=== PATIENT | male | born 1960 | race Caucasian/White ===

== ENCOUNTER 2019-04-10 09:23 | Emergency (ER) | payer MEDICARE ==
[~2019-04-10] VITALS: Ht 175.3 cm; Wt 87.3 kg
[2019-04-10 10:14] LABS: BASOPHILS # (AUTO) 0.1 X10'3 (0-0.2); EOSINOPHILS # (AUTO) 0.2 X10'3 (0-0.9); EOSINOPHILS % (AUTO) 1.8 % (0-6); HEMATOCRIT 46.3 % (42.0-52.0); HEMOGLOBIN 15.6 g/dl (14.0-17.9); LYMPHOCYTES # (AUTO) 2.4 X10'3 (1.1-4.8); LYMPHOCYTES % (AUTO) 22.1 % (21-51); MEAN CORPUSCULAR HEMOGLOBIN 29.5 PG (27.0-31.0); MEAN CORPUSCULAR HGB CONC 33.7 g/dL (33.0-36.5); MEAN CORPUSCULAR VOLUME 87.4 FL (78-98); MEAN PLATELET VOLUME 8.2 FL (7.4-10.4); MONOCYTES # (AUTO) 0.4 X10'3 (0-0.9); MONOCYTES % (AUTO) 3.6 % (2-12); NEUTROPHILS # (AUTO) 7.8 X10'3 (1.8-7.7); NEUTROPHILS % (AUTO) 71.5 % (42-75); PLATELET COUNT 344 X10'3 (140-440); RED CELL DISTRIBUTION WIDTH 14.2 % (11.5-14.5)
[2019-04-10 10:25] LABS: ALANINE AMINOTRANSFERASE 36 U/L (12-78); ALBUMIN/GLOBULIN RATIO 1.1 (1.1-1.5); ALKALINE PHOSPHATASE 98 IU/L (46-116); ANION GAP 6 (8-16); ASPARTATE AMINO TRANSFERASE 16 U/L (10-37); BILIRUBIN,TOTAL 0.4 MG/DL (0.1-1.0); BLOOD UREA NITROGEN 19 MG/DL (7-18); CHLORIDE 105 MMOL/L (99-107); CREATININE 1.12 MG/DL (0.60-1.10); GLUCOSE 132 MG/DL (70-104); POTASSIUM 3.8 MMOL/L (3.5-5.1); SODIUM 141 MMOL/L (135-145); TOTAL CARBON DIOXIDE 30.3 MMOL/L (24-32); TOTAL PROTEIN 7.6 G/DL (6.4-8.2); eGFR 68 ML/MIN
[2019-04-10] MEDS ORDERED: aspirin 81mg tab.chew PO ONE (10:45)
[2019-04-10] MEDS ORDERED: nitroGLYCERIN 0.4mg SUBLingual tab SL PRN (10:45)
--- NOTE | 2019-04-10 11:19 | NUR ---
PATIENT STATES HE FEELS MUCH BETTER , NO CHEST PAIN AND BP HAS IMPROVED
[2019-04-10 11:54] VITALS: BP 152/97
== END 2019-04-10 13:21 | disposition left against medical advice (07) ==
LOC: ER 09:23
DX: I10 Essential (primary) hypertension (principal); E78.00 Pure hypercholesterolemia, unspecified; F17.200 Nicotine dependence, unspecified, uncomplicated
CPT/HCPCS: 36415; 71045; 80053; 84484; 85025; 93005; 99284

== ENCOUNTER 2019-05-09 16:54 | Inpatient (IN) | payer MEDICARE ==
[~2019-05-09] VITALS: Ht 175.3 cm; Wt 87.0 kg
[2019-05-09 17:21] LABS: BASOPHILS % (AUTO) 0.2 % (0-1); EOSINOPHILS # (AUTO) 0.2 X10'3 (0-0.9); EOSINOPHILS % (AUTO) 1.3 % (0-6); HEMATOCRIT 44.4 % (42.0-52.0); HEMOGLOBIN 14.8 g/dl (14.0-17.9); LYMPHOCYTES # (AUTO) 4.6 X10'3 (1.1-4.8); MEAN CORPUSCULAR HEMOGLOBIN 29.1 PG (27.0-31.0); MEAN CORPUSCULAR HGB CONC 33.3 g/dL (33.0-36.5); MEAN CORPUSCULAR VOLUME 87.5 FL (78-98); MEAN PLATELET VOLUME 7.7 FL (7.4-10.4); MONOCYTES # (AUTO) 0.8 X10'3 (0-0.9); MONOCYTES % (AUTO) 4.8 % (2-12); NEUTROPHILS # (AUTO) 11.9 X10'3 (1.8-7.7); NEUTROPHILS % (AUTO) 67.7 % (42-75); PLATELET COUNT 400 X10'3 (140-440); RED BLOOD COUNT 5.08 X10'6 (4.70-6.10); RED CELL DISTRIBUTION WIDTH 14.8 % (11.5-14.5); WHITE BLOOD COUNT 17.6 X10'3 (4.5-11.0)
[2019-05-09 17:41] LABS: ALANINE AMINOTRANSFERASE 30 U/L (12-78); ALBUMIN 4.1 G/DL (3.4-5.0); ALBUMIN/GLOBULIN RATIO 1.1 (1.1-1.5); ALKALINE PHOSPHATASE 77 IU/L (46-116); ANION GAP 12 (8-16); ASPARTATE AMINO TRANSFERASE 17 U/L (10-37); BILIRUBIN,TOTAL 0.2 MG/DL (0.1-1.0); BLOOD UREA NITROGEN 13 MG/DL (7-18); BUN/CREATININE RATIO 10.6 (5.4-32.0); CALCIUM 9.5 MG/DL (8.5-10.1); CHLORIDE 104 MMOL/L (99-107); CREATININE 1.23 MG/DL (0.60-1.10); GLUCOSE 179 MG/DL (70-104); POTASSIUM 3.1 MMOL/L (3.5-5.1); SODIUM 142 MMOL/L (135-145); TOTAL CARBON DIOXIDE 26.1 MMOL/L (24-32); eGFR 60 ML/MIN
[2019-05-09] MEDS ORDERED: FENO145T38 PO (18:42)
[2019-05-09] MEDS ORDERED: METO-395 PO (18:42)
[2019-05-09] MEDS ORDERED: AMLO2.5T2 PO (18:42)
[2019-05-09] MEDS ORDERED: labetalol 20mg/4ml (5mg/ml) syringe IV ONE ×2 (18:45→18:50)
[2019-05-09] MEDS ORDERED: potassium Cl 20 mEq SR tablet PO ONE (19:35)
--- NOTE | 2019-05-09 19:58 | NUR ---
PA UPDATED ON BP
[2019-05-09] MEDS ORDERED: cloNIDine 0.1 mg tablet PO ONE (20:00)
[2019-05-09] MEDS ORDERED: nitroGLYCERIN 0.4mg/hour patch TD ONE (20:00)
[2019-05-09] MEDS ORDERED: nicotine 14mg patch - 24hr TD ONE (20:10)
[2019-05-09 20:46] LABS: URINE AMPHETAMINE SCREEN NEGATIVE (Neg); URINE BARBITUATE SCREEN NEGATIVE (Neg); URINE BENZODIAZEPINES SCREEN NEGATIVE (Neg); URINE CANNABINOID SCREEN NEGATIVE (Neg); URINE COCAINE SCREEN NEGATIVE (Neg); URINE METHADONE SCREEN NEGATIVE (Neg); URINE OPIATE SCREEN NEGATIVE (Neg); URINE PHENCYCLIDINE SCREEN NEGATIVE (Neg)
[2019-05-09] MEDS ORDERED: nitroGLYCERIN 0.4mg SUBLingual tab SL PRN (21:25)
[2019-05-09] MEDS ORDERED: acetaminophen 325mg tablet PO PRN (21:25)
[2019-05-09] MEDS ORDERED: magnesium Cl slow-release 64mg tablet PO PRN (21:25)
[2019-05-09] MEDS ORDERED: magnesium 2GM in 50ml NS 50 ML IV PRN (21:25)
[2019-05-09] MEDS ORDERED: potassium Cl 20 mEq SR tablet PO PRN ×2 (21:25)
[2019-05-09] MEDS ORDERED: magnesium hydroxide 30ml (MOM) UD suspension PO PRN (21:25)
[2019-05-09] MEDS ORDERED: ondansetron/PF 4mg/2ml inj IV PRN (21:25)
[2019-05-09] MEDS ORDERED: metoprolol tartrate 1mg/ml inj IV PRN (21:25)
[2019-05-09] MEDS ORDERED: aspirin 81mg tab.chew PO ONE (21:25)
[2019-05-09] MEDS ORDERED: mag hydrox/Alum hydrox/simeth 30ml oral suspension PO PRN (21:25)
[2019-05-09] MEDS ORDERED: morphine 2 MG/ML inj. syringe IV PRN (21:25)
[2019-05-09] MEDS ORDERED: magnesium 4gm in 100ml NS 100 ML IV PRN (21:25)
[2019-05-09] MEDS ORDERED: potassium CL 10mEq/100ml bag 100 ML IV PRN ×2 (21:25)
[2019-05-09] MEDS ORDERED: bisacodyl 10mg suppository rectal RC PRN (21:25)
[2019-05-09] MEDS: HYDROcodone/acetaminophen 5mg/325mg tablet PO PRN (21:43)
[2019-05-09 23:00] VITALS: BP 134/85
[2019-05-10] VITALS (8 sets, daily range): BP systolic 122–179; BP diastolic 74–128
[2019-05-10] MEDS: HYDROcodone/acetaminophen 5mg/325mg tablet PO PRN ×4 (05:27→19:44)
[2019-05-10 05:44] LABS: BASOPHILS # (AUTO) 0.1 X10'3 (0-0.2); BASOPHILS % (AUTO) 0.8 % (0-1); EOSINOPHILS # (AUTO) 0.3 X10'3 (0-0.9); EOSINOPHILS % (AUTO) 2.5 % (0-6); HEMATOCRIT 39.1 % (42.0-52.0); LYMPHOCYTES # (AUTO) 3.3 X10'3 (1.1-4.8); LYMPHOCYTES % (AUTO) 27.8 % (21-51); MEAN CORPUSCULAR HEMOGLOBIN 29.2 PG (27.0-31.0); MEAN CORPUSCULAR HGB CONC 33.2 g/dL (33.0-36.5); MEAN CORPUSCULAR VOLUME 87.8 FL (78-98); MEAN PLATELET VOLUME 7.6 FL (7.4-10.4); MONOCYTES # (AUTO) 0.8 X10'3 (0-0.9); MONOCYTES % (AUTO) 6.7 % (2-12); NEUTROPHILS # (AUTO) 7.4 X10'3 (1.8-7.7); NEUTROPHILS % (AUTO) 62.2 % (42-75); PLATELET COUNT 317 X10'3 (140-440); RED BLOOD COUNT 4.46 X10'6 (4.70-6.10); RED CELL DISTRIBUTION WIDTH 14.7 % (11.5-14.5)
[2019-05-10 05:48] LABS: ALANINE AMINOTRANSFERASE 24 U/L (12-78); ALBUMIN 3.3 G/DL (3.4-5.0); ALBUMIN/GLOBULIN RATIO 1.1 (1.1-1.5); ALKALINE PHOSPHATASE 62 IU/L (46-116); ANION GAP 7 (8-16); ASPARTATE AMINO TRANSFERASE 16 U/L (10-37); BILIRUBIN,TOTAL 0.3 MG/DL (0.1-1.0); BLOOD UREA NITROGEN 19 MG/DL (7-18); BUN/CREATININE RATIO 14.6 (5.4-32.0); CALCIUM 8.9 MG/DL (8.5-10.1); CHLORIDE 108 MMOL/L (99-107); GLUCOSE 105 MG/DL (70-104); POTASSIUM 3.9 MMOL/L (3.5-5.1); SODIUM 143 MMOL/L (135-145); TOTAL CARBON DIOXIDE 27.7 MMOL/L (24-32); TOTAL PROTEIN 6.4 G/DL (6.4-8.2); eGFR 57 ML/MIN
[2019-05-10 05:53] LABS: MAGNESIUM 2.2 MG/DL (1.5-2.4); PHOSPHORUS 4.1 MG/DL (2.3-4.5)
[2019-05-10 06:13] LABS: HEMOGLOBIN A1C 6.6 % (4.5-6.2)
--- NOTE | 2019-05-10 06:30 | NUR ---
Problems reprioritized. Patient report given, questions answered & plan of care reviewed with Vlad OSORIO.
--- NOTE | 2019-05-10 06:38 | NUR ---
Patient in room PCU 3012. I have received report from KIP OSORIO and had the opportunity to ask questions and assume patient care.
[2019-05-10] MEDS: docusate sod 100mg capsule PO SCH ×2 (07:49→19:44)
[2019-05-10] MEDS: atorvastatin 10mg tablet PO SCH (07:49)
[2019-05-10] MEDS: aspirin 81mg tab.chew PO SCH (07:50)
[2019-05-10] MEDS: enoxaparin 40mg/0.4ml syringe SQ SCH (07:51)
[2019-05-10] MEDS: K and/or MAG REPLACEMENT MC SCH ×2 (08:00→19:52)
[2019-05-10] MEDS ORDERED: regadenoson 0.4mg/5ml syringe IV ONE (09:40)
[2019-05-10] MEDS ORDERED: nitroGLYCERIN 0.4mg SUBLingual tab SL PRN (09:40)
[2019-05-10] MEDS ORDERED: aminophylline 250mg/10ml inj. IV PRN (09:40)
[2019-05-10] MEDS ORDERED: metoprolol tartrate 1mg/ml inj IV PRN (09:40)
[2019-05-10] MEDS ORDERED: metoprolol succinate 25mg (24-HOUR) SR. Tablet PO ONE (09:55)
[2019-05-10 10:39] LABS: D-DIMER 0.24 MG/L FEU (0-0.50)
--- NOTE | 2019-05-10 14:44 | NUR ---
DM consult re: newly diagnosed DM with A1c of 6.6; met with patient at bedside and given written DM education handout for new diagnosed DM and referral to outpatient DM education class on Monday. Discussed physiology of type 2 DM, type of carbs, serving sizes, carb counting, etc. Verbalized feeling motivated. Addendum: 05/10/19 at [address] Amended: Links added.
--- NOTE | 2019-05-10 14:54 | NUR ---
MESSAGE: RE: Jose Abhilash room [id number] Pt's BP is now 171/118 HR 71 I gave him [place] for back pain an hour ago Do you want to order additional BP meds? Vlad OSORIO [id number]
--- NOTE | 2019-05-10 18:34 | NUR ---
Problems reprioritized. Patient report given, questions answered & plan of care reviewed with Branden OSORIO.
--- NOTE | 2019-05-10 18:35 | NUR ---
Patient in room PCU 3012. I have received report from Vlad OSORIO and had the opportunity to ask questions and assume patient care.
[2019-05-10] MEDS: metoprolol succinate 25mg (24-HOUR) SR. Tablet PO SCH (19:45)
--- NOTE | 2019-05-10 23:02 | NUR ---
Page Sent PAGER ID: [phone] MESSAGE: Jose Ann rm [id number] 59 y/o male here for CP and HTN. current BP is 179/110, 180/108 manually, can we get something to lower his pressure please?- Branden [phone]
[2019-05-10] MEDS: hydrALAZINE 20mg/ml inj. IV PRN (23:21)
[2019-05-11] VITALS (19 sets, daily range): BP systolic 136–196; BP diastolic 89–115
--- NOTE | 2019-05-11 00:40 | NUR ---
Page Sent PAGER ID: [phone] MESSAGE: Jose Ann 3012A 59 y/o male here for CP and HTN. recheck BP after hydralazine, 196/115- Branden [phone]
[2019-05-11] MEDS: metoprolol tartrate 1mg/ml inj IV SCH ×3 (01:03→01:33)
[2019-05-11 05:54] LABS: BASOPHILS # (AUTO) 0.1 X10'3 (0-0.2); BASOPHILS % (AUTO) 1.1 % (0-1); EOSINOPHILS # (AUTO) 0.3 X10'3 (0-0.9); EOSINOPHILS % (AUTO) 2.1 % (0-6); HEMATOCRIT 42.5 % (42.0-52.0); HEMOGLOBIN 14.2 g/dl (14.0-17.9); LYMPHOCYTES # (AUTO) 2.8 X10'3 (1.1-4.8); LYMPHOCYTES % (AUTO) 21.9 % (21-51); MEAN CORPUSCULAR HEMOGLOBIN 29.1 PG (27.0-31.0); MEAN CORPUSCULAR HGB CONC 33.5 g/dL (33.0-36.5); MEAN CORPUSCULAR VOLUME 86.9 FL (78-98); MEAN PLATELET VOLUME 7.6 FL (7.4-10.4); MONOCYTES # (AUTO) 0.7 X10'3 (0-0.9); MONOCYTES % (AUTO) 5.2 % (2-12); NEUTROPHILS # (AUTO) 8.8 X10'3 (1.8-7.7); NEUTROPHILS % (AUTO) 69.7 % (42-75); PLATELET COUNT 322 X10'3 (140-440); RED BLOOD COUNT 4.88 X10'6 (4.70-6.10); RED CELL DISTRIBUTION WIDTH 14.5 % (11.5-14.5); WHITE BLOOD COUNT 12.7 X10'3 (4.5-11.0)
--- NOTE | 2019-05-11 06:06 | NUR ---
Problems reprioritized. Patient report given, questions answered & plan of care reviewed with Celsa OSORIO.
[2019-05-11 06:14] LABS: ALANINE AMINOTRANSFERASE 29 U/L (12-78); ALBUMIN 3.4 G/DL (3.4-5.0); ALBUMIN/GLOBULIN RATIO 0.9 (1.1-1.5); ALKALINE PHOSPHATASE 76 IU/L (46-116); ANION GAP 4 (8-16); ASPARTATE AMINO TRANSFERASE 18 U/L (10-37); BILIRUBIN,TOTAL 0.4 MG/DL (0.1-1.0); BLOOD UREA NITROGEN 17 MG/DL (7-18); BUN/CREATININE RATIO 14.2 (5.4-32.0); CALCIUM 8.9 MG/DL (8.5-10.1); CHLORIDE 108 MMOL/L (99-107); GLUCOSE 97 MG/DL (70-104); MAGNESIUM 2.2 MG/DL (1.5-2.4); PHOSPHORUS 2.6 MG/DL (2.3-4.5); POTASSIUM 4.1 MMOL/L (3.5-5.1); SODIUM 141 MMOL/L (135-145); TOTAL CARBON DIOXIDE 29.2 MMOL/L (24-32); eGFR 62 ML/MIN
--- NOTE | 2019-05-11 06:18 | NUR ---
Patient in room PCU 3012A. I have received report from Branden OSORIO and had the opportunity to ask questions and assume patient care.
[2019-05-11] MEDS: aspirin 81mg tab.chew PO SCH (07:35)
[2019-05-11] MEDS: docusate sod 100mg capsule PO SCH (07:37)
[2019-05-11] MEDS: enoxaparin 40mg/0.4ml syringe SQ SCH (07:37)
[2019-05-11] MEDS: atorvastatin 10mg tablet PO SCH (07:38)
[2019-05-11] MEDS: HYDROcodone/acetaminophen 5mg/325mg tablet PO PRN ×2 (07:41→11:52)
[2019-05-11] MEDS: K and/or MAG REPLACEMENT MC SCH (08:00)
[2019-05-11] MEDS ORDERED: fenofibrate 145mg tablet PO SCH (08:00)
[2019-05-11] MEDS ORDERED: nicotine 21mg patch - 24 hr TD SCH (08:00)
[2019-05-11] MEDS ORDERED: cloNIDine 0.1 mg tablet PO SCH (08:00)
[2019-05-11] MEDS: metoprolol succinate 25mg (24-HOUR) SR. Tablet PO SCH (08:00)
--- NOTE | 2019-05-11 08:32 | NUR ---
Pulled morphine 2mg IV, recorded waste for 1mg dose. However, patient refused morphine 1mg (0.5mL) IV and requested [place] PO. Unable to record waste for 1mg dose, wasted in presence of another RN.
[2019-05-11] MEDS: hydrALAZINE 20mg/ml inj. IV PRN (10:28)
[2019-05-11] MEDS: cloNIDine 0.1 mg tablet PO SCH ×2 (11:29→16:00)
--- NOTE | 2019-05-11 14:01 | NUR ---
Paged Dr. Ridley, regarding patient's blood pressure. Patient is asymptomatic with his blood pressure. PAGER ID: [phone] MESSAGE: Celsa brower [phone]. Torri Adams 3012A. Pt's blood pressure still in the 150-160/100s after clonidine 0.2mg. Do you want any additional medications or to continue his home meds? Thanks!
[2019-05-11] MEDS ORDERED: lisinopril 20mg tablet PO SCH (14:10)
--- NOTE | 2019-05-11 14:30 | NUR ---
Student Medication Administration: For this medication-pass time frame, all medication were reviewed, dispensed, administered and documented per hospital policy by SN Jade.
--- NOTE | 2019-05-11 14:33 | NUR ---
Paged Dr. Ridley regarding patient's blood pressure. BP improving, asymptomatic. PAGER ID: [phone] MESSAGE: Celsa brower [phone]. RE Torri Hung 3012A. Pt's BP 143/89 before lisinopril 40mg, gave dose, will recheck in 1 hour. Thanks!
--- NOTE | 2019-05-11 15:00 | NUR ---
Patient refused 1500 vital signs.
--- NOTE | 2019-05-11 16:12 | NUR ---
PAGER ID: [phone] MESSAGE: Celsa brower [phone]. RE Torri Hung 3012A. Pt BP 134/86 currently. Asymptomatic. Will keep monitoring. Thanks!
--- NOTE | 2019-05-11 16:16 | NUR ---
Did not administer clonidine 0.2mg at 1600 dose per MD order to hold medication at this time.
--- NOTE | 2019-05-11 17:29 | NUR ---
PAGER ID: [phone] MESSAGE: Celsa brower [phone]. RE Torri Hung 3012A. Patient is getting ready to leave AMA, can we discharge him please? Thanks!
--- NOTE | 2019-05-11 17:36 | NUR ---
patient is requesting to leave, states that he is going to walk out of here. Asked him to wait for Dr. Ridley to discharge the patient. He states that he is "getting anxious and needs to leave, I won't stay much longer". IV removed at this time and tele removed. Paged Dr. Ridley and awaiting response.
--- NOTE | 2019-05-11 17:44 | NUR ---
Patient did not want to wait to be discharged, is dressed and walking out of the room. Explained to patient the he would be leaving AMA, explained the risks of leaving. Patient understands and did sign AMA. IV removed, tele removed, and ID band removed. Patient has all belongings and is witnessed walking off unit.
== END 2019-05-11 17:50 | disposition left against medical advice (07) | DRG 313 ==
LOC: ER 16:54 → ED HOLD 21:23 → PCU 3S 22:52 → OBSVTOIN 05-10 10:20
PROVIDERS: ADMIT Family Medicine; ATTEND Internal Medicine
PROC: 4A02XM4 Measurement of Cardiac Total Activity, External Approach (ICD-10-PCS; principal; 2019-05-11)
DX: R07.9 Chest pain, unspecified (principal); I16.0 Hypertensive urgency; E11.9 Type 2 diabetes mellitus without complications; E78.5 Hyperlipidemia, unspecified; I10 Essential (primary) hypertension; F17.200 Nicotine dependence, unspecified, uncomplicated; Z53.29 Procedure and treatment not carried out because of patient's decision for other reasons; Z79.899 Other long term (current) drug therapy
CPT/HCPCS: 36415; 71045; 78452; 80053; 80305; 82948; 83036; 83735; 83880; 84100; 84484; 85025; 85379; 87081; 93005; 93017; 93306; 96374; 99285; A9500; G0378; J0360; J1650; J2270; J2785; J3490